=== PATIENT | male | born 1995 | race Caucasian/White ===

== ENCOUNTER 2019-03-06 15:52 | Emergency (ER) | payer BC ==
[2019-03-06] MEDS ORDERED: HYDROCODONE/APAP 10/325 TAB ONE (16:46)
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
== END 2019-03-06 18:20 | disposition home or self-care (01) ==
LOC: ER 15:52
DX: S43.004A Unspecified dislocation of right shoulder joint, initial encounter (principal); S09.90XA Unspecified injury of head, initial encounter; S40.211A Abrasion of right shoulder, initial encounter; S80.811A Abrasion, right lower leg, initial encounter; V19.3XXA Pedal cyclist (driver) (passenger) injured in unspecified nontraffic accident, initial encounter; Y93.55 Activity, bike riding; Y92.830 Public park as the place of occurrence of the external cause
CPT/HCPCS: 99283